=== PATIENT | male | born 1960 | race Caucasian/White ===

== ENCOUNTER 2024-10-10 09:23 | Outpatient (RCR) | payer MEDICARE, MEDICAID, SELFPAY ==
--- NOTE | 2024-10-10 10:00 | XR_ITS ---
Examination: JOSE, hepatobiliary radioisotope scan Gallbladder ejection fraction study. Date and time of exam: October 10, 2024 0937 hours INDICATIONS: Epigastric pain beginning 3 years ago with heartburn and acid reflux Technique: 6 mCi of 99M Hepatolite administered. Serial imaging then obtained from immediate through 60 minutes. 1.6 mcg selective catheter Kinevac administered for gallbladder ejection fraction study. Findings: Radioisotope activity within the liver is reasonably homogenous. Gallbladder, common bile duct small bowel activity noted Impression: Gallbladder activity Abnormal gallbladder ejection fraction, 28%, normal greater than 35%
== END 2024-10-15 23:59 | disposition home or self-care (01) ==
LOC: SNUC 09:23
PROVIDERS: PCP Internal Medicine Hospice and Palliative Medicine; Referring Provider Internal Medicine Hospice and Palliative Medicine; Visit Provider Internal Medicine Hospice and Palliative Medicine
DX: R93.2 Abnormal findings on diagnostic imaging of liver and biliary tract (principal)
CPT/HCPCS: 78227; A9537; J2805